=== PATIENT | male | born 1975 | race Caucasian/White ===

== ENCOUNTER → 2017-12-18 | Outpatient (REF) | payer SELFPAY ==
[2017-12-18 12:36] LABS: BASO # 0.1 10^3/uL (0.0-0.2); BASO % 1.4 % (0.0-1.0); EOS # 0.4 10^3/uL (0.0-0.50); EOS % 9.9 % (0.0-3.0); HEMATOCRIT 43.6 % (42.0-52.0); HEMOGLOBIN 15.2 g/dl (13.5-17.5); LYMPH # 1.2 10^3/uL (1.5-4.5); LYMPH % 28.7 % (24.0-44.0); MEAN CORPUSCULAR HEMOGLOBIN 32.7 pg (27.0-33.0); MEAN CORPUSCULAR HGB CONC 34.9 g/dl (32.0-36.5); MEAN CORPUSCULAR VOLUME 93.8 fl (80.0-96.0); MONO # 0.4 10^3/uL (0.0-0.8); MONO % 10.1 % (0.0-5.0); NEUTROPHILS # 2.1 10^3/uL (1.8-7.7); NEUTROPHILS % 49.9 % (36.0-66.0); PLATELET COUNT, AUTOMATED 269 10^3/uL (150-450); RED BLOOD COUNT 4.65 10^6/uL (4.30-6.10); RED CELL DISTRIBUTION WIDTH 12.2 % (11.5-14.5); WHITE BLOOD COUNT 4.1 10^3/uL (4.0-10.0)
[2017-12-18 13:17] LABS: ALBUMIN/GLOBULIN RATIO 1.29 (1.00-1.93); ALKALINE PHOSPHATASE 52 U/L (45-117); ALT/SGPT 23 U/L (12-78); ANION GAP 7 MEQ/L (8-16); AST/SGOT 14 U/L (7-37); BILIRUBIN,TOTAL 0.7 MG/DL (0.2-1.0); BLOOD UREA NITROGEN 16 MG/DL (7-18); CALCIUM LEVEL 8.7 MG/DL (8.5-10.1); CARBON DIOXIDE LEVEL 28 MEQ/L (21-32); CHLORIDE LEVEL 106 MEQ/L (98-107); CHOLESTEROL LEVEL 148 MG/DL (<200); CHOLESTEROL RISK RATIO 2.387 (<5); CREATININE FOR GFR 1.19 MG/DL (0.70-1.30); FREE T4 0.77 NG/DL (0.76-1.46); GLOMERULAR FILTRATION RATE > 60.0 (>60); GLUCOSE, FASTING 96 MG/DL (70-100); HDL CHOLESTEROL 62 MG/DL (>40); LDL CHOLESTEROL 72.6 MG/DL (<100); NON-HDL-C 86 MG/DL; POTASSIUM SERUM 4.6 MEQ/L (3.5-5.1); SODIUM LEVEL 141 MEQ/L (136-145); THYROID STIMULATING HORMONE 0.652 uIU/ML (0.358-3.740); TOTAL PROTEIN 7.1 GM/DL (6.4-8.2); TRIGLYCERIDES LEVEL 67 MG/DL (<150)
[2017-12-18 15:20] LABS: HIV 1&2 SCREEN CENTAUR NEGATIVE (NEGATIVE)
== END ==
LOC: M SFHCADAM 10:23
DX: I10 Essential (primary) hypertension (principal); R40.0 Somnolence; R13.10 Dysphagia, unspecified; R10.32 Left lower quadrant pain

== ENCOUNTER 2018-01-28 10:07 | Day surgery (SDC) | payer SELFPAY ==
[2018-01-28] MEDS: NS 1,000 ML IV (10:23)
[2018-01-28] MEDS ORDERED: fentaNYL 100 MCG/2 ML INJECTION (J3010) As Ordered (11:14)
[2018-01-28] MEDS ORDERED: LIDOCAINE 2% INJ 100 MG/5 ML SDV (FOR ANES.) As Ordered (11:14)
[2018-01-28] MEDS ORDERED: PROPOFOL 200 MG/20 ML VIAL As Ordered (11:14)
[2018-01-28] MEDS ORDERED: GLYCOPYRROLATE INJ 0.2 MG/ML 2 ML VIAL As Ordered (11:14)
[2018-01-28] MEDS ORDERED: ONDANSETRON 4MG/2ML VIAL (J2405) As Ordered (11:14)
== END 2018-01-28 11:55 | disposition home or self-care (01) ==
LOC: M OPP 10:07
DX: R13.10 Dysphagia, unspecified (principal); K31.89 Other diseases of stomach and duodenum; K21.9 Gastro-esophageal reflux disease without esophagitis; F41.9 Anxiety disorder, unspecified; R51 Headache; G47.8 Other sleep disorders; G47.30 Sleep apnea, unspecified; R06.83 Snoring; Z79.899 Other long term (current) drug therapy; Z80.3 Family history of malignant neoplasm of breast
CPT/HCPCS: 43239

== ENCOUNTER 2018-09-01 19:44 | Outpatient (CLI) | payer SELFPAY ==
[~2018-09-01 19:44] MED LIST: OMEP40CA2 PO
--- NOTE | 2018-09-14 11:30 | SLEEPMSLT ---
DATE OF POLYSOMNOGRAPHY: 09/01/2018 REFERRING PHYSICIAN: Alek Kuo MD INTERPRETATION: An overnight polysomnography was performed for evaluation of excessive daytime sleepiness. A total 8 hours and 33 minutes of data was reviewed with total sleep time 458 minutes, with normal sleep latency and sleep efficiency. EEG remained normal throughout. EKG revealed mean heart rate 60 beats per minute. Moderate snoring was observed. The oxygen saturation remained 92% or above throughout the study. There were no significant respiratory events or periodic limb movements of sleep during this study. CONCLUSION: Primary snoring, no evidence of obstructive sleep apnea syndrome. MULTIPLE SLEEP LATENCY TEST: DATE: 09/02/2018 INTERPRETATION: After overnight polysomnography, a multiple sleep latency test was performed and patient was given four nap opportunities. Patient achieved sleep only in two naps and remained awake in the other two naps. Sleep onset latencies were 7.5 and 16.5 in second and fourth naps. The mean sleep onset latency was 16 minutes, which is within normal limits. CONCLUSION: This multiple sleep latency test is within normal limits.
== END 2018-09-02 14:30 ==
LOC: M SLEEP 19:44
PROVIDERS: ATTEND Psychiatry & Neurology Neurology
DX: R42 Dizziness and giddiness (principal); R53.83 Other fatigue; G44.229 Chronic tension-type headache, not intractable; G43.009 Migraine without aura, not intractable, without status migrainosus; G47.00 Insomnia, unspecified

== ENCOUNTER → 2019-10-27 | Outpatient (CLI) | payer BC ==
[~2019-10-27] MED LIST changes: -OMEP40CA2 PO; +OMEP40CA97 PO
== END ==
LOC: M LABSMTC 13:33
PROVIDERS: ATTEND Family Medicine
DX: Z11.59 Encounter for screening for other viral diseases (principal)
CPT/HCPCS: C9803; U0003

== ENCOUNTER 2022-04-17 00:17 | Emergency (ER) | payer BC ==
[~2022-04-17] VITALS: Ht 182.9 cm; Wt 74.3 kg
[~2022-04-17 00:17] MED LIST changes: +ADDE20CA3 PO; +OMEP40CA4 PO; -OMEP40CA97 PO
[2022-04-17 00:19] VITALS: BP 138/92
[2022-04-17] MEDS ORDERED: FLUORESCEIN OPHTH 1 MG STRIP OS ONE (04:55)
[2022-04-17] MEDS ORDERED: TETRACAINE 0.5% OPHTH SOLN 4ML OS ONE (04:55)
[2022-04-17] MEDS ORDERED: ERYT5OIN25 OS (05:55)
[2022-04-17] MEDS ORDERED: ERYTHROMYCIN OPHTH OINT OS ONE (05:55)
== END 2022-04-17 06:14 | disposition home or self-care (01) ==
LOC: M ED 00:17
DX: S05.02XA Injury of conjunctiva and corneal abrasion without foreign body, left eye, initial encounter (principal); I10 Essential (primary) hypertension; K21.9 Gastro-esophageal reflux disease without esophagitis; Z79.899 Other long term (current) drug therapy; Y92.9 Unspecified place or not applicable; Y93.9 Activity, unspecified; Y99.9 Unspecified external cause status

== ENCOUNTER 2023-12-30 07:32 | Emergency (ER) | payer BC ==
[~2023-12-30] VITALS: Ht 182.9 cm; Wt 76.5 kg
[~2023-12-30 07:32] MED LIST changes: +ERYT5OIN25 OS
[2023-12-30 08:27] LABS: BASO # 0.1 10^3/uL (0.0-0.2); EOS # 0.2 10^3/uL (0.0-0.5); EOS % 4.2 % (0.0-3.0); HEMATOCRIT 46.6 % (42.0-52.0); HEMOGLOBIN 16.4 g/dl (13.5-17.5); LYMPH # 1.4 10^3/uL (1.5-5.0); LYMPH % 28.7 % (24.0-44.0); MEAN CORPUSCULAR HGB CONC 35.2 g/dl (32.0-36.5); MEAN CORPUSCULAR VOLUME 93.8 fl (80.0-96.0); MONO # 0.5 10^3/uL (0.0-0.8); MONO % 9.2 % (2.0-8.0); NEUTROPHILS # 2.9 10^3/uL (1.5-8.5); NEUTROPHILS % 56.7 % (36.0-66.0); PLATELET COUNT, AUTOMATED 292 10^3/uL (150-450); RED BLOOD COUNT 4.97 10^6/uL (4.30-6.10)
[2023-12-30 08:31] LABS: C REACTIVE PROTEIN QUANTITATIV < 0.40 MG/DL (<1.0)
[2023-12-30 08:33] LABS: BLOOD UREA NITROGEN 9 MG/DL (9-23); CALCIUM LEVEL 9.4 MG/DL (8.5-10.1); CARBON DIOXIDE LEVEL 29 MMOL/L (20-31); CHLORIDE LEVEL 103 MMOL/L (98-107); CREATININE FOR GFR 1.04 MG/DL (0.70-1.30); GLOMERULAR FILTRATION RATE > 60.0 (>60); GLUCOSE, FASTING 99 MG/DL (60-100); POTASSIUM SERUM 5.1 MMOL/L (3.5-5.1); SODIUM LEVEL 136 MMOL/L (136-145)
[2023-12-30] MEDS: LORazepam 2 MG/ML 1ML VIAL IV STA (09:54)
[2023-12-30 09:56] LABS: ERYTHROCYTE SEDIMENTATION RATE 2 mm/hr (0-15)
[2023-12-30] MEDS ORDERED: HOME MED LIST COMPLETE! XX SCH (13:50)
[2023-12-30] MEDS ORDERED: [UNRECOGNIZED DRUG - SUPPLY] (13:51)
[2023-12-30 14:02] VITALS: BP 136/89; TEMP 98.6; O2SAT 99
== END 2023-12-30 14:14 | disposition home or self-care (01) ==
LOC: M ED 07:32
DX: S84.11XA Injury of peroneal nerve at lower leg level, right leg, initial encounter (principal); G56.91 Unspecified mononeuropathy of right upper limb; G95.81 Conus medullaris syndrome; M50.222 Other cervical disc displacement at C5-C6 level; M47.816 Spondylosis without myelopathy or radiculopathy, lumbar region; M21.371 Foot drop, right foot; M51.26 Other intervertebral disc displacement, lumbar region; M51.37 Other intervertebral disc degeneration, lumbosacral region; I10 Essential (primary) hypertension; K21.9 Gastro-esophageal reflux disease without esophagitis; G43.909 Migraine, unspecified, not intractable, without status migrainosus; F10.10 Alcohol abuse, uncomplicated
CPT/HCPCS: 70450; 70551; 72141; 72148; 80048; 85025; 85652; 86140; 93005; 96374; 99285; J2060

== ENCOUNTER → 2024-01-18 | Outpatient (REF) | payer BC ==
[~2024-01-18] MED LIST changes: +[UNRECOGNIZED DRUG - SUPPLY]
[2024-01-18 14:50] LABS: COMPLEMENT C3 77.4 MG/DL (90.0-170.0); COMPLEMENT C4 19.8 MG/DL (12-36)
[2024-01-18 14:52] LABS: THYROID STIMULATING HORMONE 1.987 uIU/ML (0.55-4.78)
[2024-01-18 14:53] LABS: TOTAL 25(OH) VITAMIN D 44.2 NG/ML (20.0-100.0)
[2024-01-18 14:57] LABS: FOLATE 11.4 NG/ML (>5.4)
[2024-01-19 16:51] LABS: ANA SCREEN, IFA NEGATIVE (NEGATIVE)
== END ==
LOC: M SFHCADAM 07:33
PROVIDERS: ATTEND Physician Assistant Medical
DX: M21.371 Foot drop, right foot (principal); G62.9 Polyneuropathy, unspecified

== ENCOUNTER → 2024-03-28 | Outpatient (CLI) | payer BC ==
[~2024-03-28] MED LIST changes: +E-Z-GAS II EFFERVESCENT PACKET (SODIUM BICARB./CITRIC ACID/SIMETHICONE) As Ordered ONE; +E-Z-HD 98% w/w 340GM SUSP BTL As Ordered ONE; +E-Z-PAQUE 96% w/w SUSP 176GM BTL As Ordered ONE
== END ==
LOC: M RAD 09:55
PROVIDERS: ATTEND Surgery
DX: R13.10 Dysphagia, unspecified (principal); K44.9 Diaphragmatic hernia without obstruction or gangrene

== ENCOUNTER 2024-05-20 06:45 | Day surgery (SDC) | payer BC ==
[~2024-05-20] VITALS: Ht 182.9 cm; Wt 73.0 kg
[~2024-05-20 06:45] MED LIST changes: -E-Z-GAS II EFFERVESCENT PACKET (SODIUM BICARB./CITRIC ACID/SIMETHICONE) As Ordered ONE; -E-Z-HD 98% w/w 340GM SUSP BTL As Ordered ONE; -E-Z-PAQUE 96% w/w SUSP 176GM BTL As Ordered ONE
[2024-05-20 08:10] VITALS: TEMP 97.2
[2024-05-20 08:26] VITALS: BP 122/86; O2SAT 99
== END 2024-05-20 08:27 | disposition home or self-care (01) ==
LOC: M OPP 06:45
PROVIDERS: ATTEND Surgery
DX: K20.0 Eosinophilic esophagitis (principal); R13.10 Dysphagia, unspecified; R12 Heartburn

== ENCOUNTER → 2025-02-20 | Outpatient (REF) | payer BC ==
[2025-02-20 14:20] LABS: BASO # 0.1 10^3/uL (0.0-0.2); BASO % 1.5 % (0.0-1.0); EOS # 0.4 10^3/uL (0.0-0.5); EOS % 7.2 % (0.0-3.0); LYMPH # 1.4 10^3/uL (1.5-5.0); LYMPH % 25.8 % (24.0-44.0); MONO # 0.5 10^3/uL (0.0-0.8); MONO % 9.7 % (2.0-8.0); NEUTROPHILS # 2.9 10^3/uL (1.5-8.5); NEUTROPHILS % 55.4 % (36.0-66.0); PLATELET COUNT, AUTOMATED 293 10^3/uL (150-450)
[2025-02-20 14:26] LABS: ALT/SGPT 24 U/L (7.0-40); AST/SGOT 16 U/L (<34); CALCIUM LEVEL 9.7 MG/DL (8.5-10.1); CARBON DIOXIDE LEVEL 31 MMOL/L (20-31); CHLORIDE LEVEL 104 MMOL/L (98-107); CHOLESTEROL LEVEL 181 MG/DL (<200); CHOLESTEROL RISK RATIO 2.70 (<5); CREATININE FOR GFR 1.22 MG/DL (0.70-1.30); FREE T4 1.09 NG/DL (0.89-1.76); GLOMERULAR FILTRATION RATE 73.6 (>60); LDL CHOLESTEROL 84.2 MG/DL (<100); NON-HDL-C 114.0 MG/DL; POTASSIUM SERUM 4.8 MMOL/L (3.5-5.1); SODIUM LEVEL 141 MMOL/L (136-145); TRIGLYCERIDES LEVEL 149 MG/DL (<150); VITAMIN B12 LEVEL 277 PG/ML (211-911)
[2025-02-20 14:27] LABS: C REACTIVE PROTEIN QUANTITATIV < 0.50 MG/DL (<1.0)
[2025-02-20 14:38] LABS: COMPLEMENT C4 22.2 MG/DL (12-36); ESTIMATED AVERAGE GLUCOSE 100.0 MG/DL (60-110)
[2025-02-20 14:42] LABS: ERYTHROCYTE SEDIMENTATION RATE < 1 mm/hr (0-15)
== END ==
LOC: M SFHCADAM 07:50
PROVIDERS: ATTEND Physician Assistant Medical
DX: G62.9 Polyneuropathy, unspecified (principal); Z13.220 Encounter for screening for lipoid disorders; M54.59 Other low back pain; R77.8 Other specified abnormalities of plasma proteins; R53.83 Other fatigue; K20.0 Eosinophilic esophagitis

== ENCOUNTER 2025-04-27 09:26 | Day surgery (SDC) | payer BC ==
[~2025-04-27] VITALS: Ht 182.9 cm; Wt 72.5 kg
[~2025-04-27 09:26] MED LIST changes: +PANT40TA29 PO
[2025-04-27] MEDS ORDERED: LIDOCAINE 2% 100 MG/5 ML SDV (FOR ANES.) As Ordered ONE (10:27)
[2025-04-27 11:05] VITALS: BP 114/79; O2SAT 98
== END 2025-04-27 11:10 | disposition home or self-care (01) ==
LOC: M OPP 09:26
PROVIDERS: ATTEND Internal Medicine Gastroenterology
DX: K31.A0 Gastric intestinal metaplasia, unspecified (principal); K22.89 Other specified disease of esophagus; K20.0 Eosinophilic esophagitis; K29.70 Gastritis, unspecified, without bleeding; G47.30 Sleep apnea, unspecified; Z79.899 Other long term (current) drug therapy
CPT/HCPCS: 43239; 88305; J3010